=== PATIENT | female | born 2000 | race Two or more races ===

== ENCOUNTER 2023-06-21 01:28 | Emergency (ER) | payer MEDICAID, OTHER ==
[~2023-06-21] VITALS: Ht 165.1 cm; Wt 72.8 kg
[2023-06-21] MEDS ORDERED: AMOX875T4 PO (04:44)
[2023-06-21 04:52] VITALS: BP 129/79; PULSE 95; RESP 16; TEMP 98.1; O2SAT 98
== END 2023-06-21 04:51 | disposition home or self-care (01) ==
LOC: ER 01:28
DX: S80.812A Abrasion, left lower leg, initial encounter (principal); S80.811A Abrasion, right lower leg, initial encounter; Z79.899 Other long term (current) drug therapy; W54.0XXA Bitten by dog, initial encounter; Y93.89 Activity, other specified; Y92.89 Other specified places as the place of occurrence of the external cause; Y99.8 Other external cause status